=== PATIENT | female | born 1990 | race Caucasian/White ===

== ENCOUNTER 2017-05-28 11:29 | Emergency (ER) | payer MEDICAID ==
[~2017-05-28] VITALS: Ht 154.9 cm; Wt 72.6 kg
[2017-05-28 11:29] VITALS: BP 128/81
[2017-05-28] MEDS ORDERED: PENI500T PO (11:49)
[2017-05-28] MEDS ORDERED: OXYC5CAP PO (11:49)
[2017-05-28] MEDS ORDERED: oxyCODONE/APAP 5/325 1 TAB TABLET PO ONE (12:00)
[2017-05-28] MEDS ORDERED: PENICILLIN V K 250 MG TABLET. PO ONE (12:00)
--- NOTE | 2017-05-28 12:14 | ED.ADGEN ---
Past History Past Medical History: No Pertinent History Past Surgical History: No Surgical History Alcohol Use: None Drug Use: None Adult General HPI HPI Patient is a 27-year-old woman, who is 34 weeks , with no other significant past no history, who presents to the emergency department with complaint of dental pain. Patient states she's been experiencing intermittent pain in the right lower jaw over the past several weeks, worse over the past several days. She has appointment to see a dentist on of the coming week. She denies any fevers or chills, any nausea or vomiting, any weakness, numbness, tingling, chest pain, shortness of breath and difficulty with swallowing or breathing. Patient states that she has been using Tylenol without relief, did speak to her doctor's office today and was told to come to the ED for evaluation for pain medication and potential antibiotic use. Patient does have all of her wisdom teeth. Patient states the pain is now radiating into her left ear. No difficulty with hearing, no headache. Review of Systems Review of Systems Constitutional: Denies fever or chills [] Eyes: Denies change in visual acuity, redness, or eye pain [] HENT: Denies nasal congestion or sore throat []pain and lower jaw, left side, radiating into the ear. Respiratory: Denies cough or shortness of breath [] Cardiovascular: No additional information not addressed in HPI [] GI: Denies abdominal pain, nausea, vomiting, bloody stools or diarrhea [] : Denies dysuria or hematuria [] Musculoskeletal: Denies back pain or joint pain [] Integument: Denies rash or skin lesions [] Neurologic: Denies headache, focal weakness or sensory changes [] Endocrine: Denies polyuria or polydipsia [] Current Medications Current Medications Current Medications Medications (Trade) Dose Ordered Sig/Rachel Start Time Stop Time Status Last Admin Dose Admin Oxycodone/ Acetaminophen (Percocet 5/325) 1 tab 1X ONCE 05/28/17 12:00 05/28/17 12:02 DC 05/28/17 12:00 1 TAB Penicillin V Potassium (Veetid) 500 mg 1X ONCE 05/28/17 12:00 05/28/17 12:02 DC 05/28/17 12:00 500 MG Allergies Allergies Allergies Coded Allergies Type Severity Reaction Last Updated Verified No Known Drug Allergies 05/28/17 No Physical Exam Physical Exam Constitutional: Well developed, well nourished, no acute distress, non-toxic appearance. [] HENT: Normocephalic, atraumatic, bilateral external ears normal, oropharynx moist, no oral exudates, nose normal. Patient with tenderness to palpation of the posterior aspect of the left lower jaw, no abscess formation or induration identified, no dental caries. Patient identifies this area with palpation a source for pain, which she describes as lancinating and traveling up into the ear. []TMs are clear bilaterally. Eyes: PERRLA, EOMI, conjunctiva normal, no discharge. [] Neck: Normal range of motion, no tenderness, supple, no stridor. [] Cardiovascular:Heart rate regular rhythm, no murmur, S1, S2, no rubs or gallops. [] Lungs & Thorax: Bilateral breath sounds clear to auscultation, no wheezing, rhonchi, rales. No chest or crepitus or tenderness. [] Abdomen: Bowel sounds normal, soft, gravid abdomen, no tenderness, no masses, no pulsatile masses. [] Skin: Warm, dry, no erythema, no rash. [] Back: No tenderness, no CVA tenderness. [] Extremities: No tenderness, no cyanosis, no clubbing, ROM intact, no edema. Negative Homans sign.[] Neurologic: Alert and oriented X 3, normal motor function, normal sensory function, no focal deficits noted. [] Psychologic: Affect normal, judgement normal, mood normal. [] heart tones in the 150s. Active motion. Current Patient Data Vital Signs Vital Signs Date Time Temp Pulse Resp B/P (MAP) Pulse Ox O2 Delivery O2 Flow Rate FiO2 05/28/17 12:00 18 98 Room Air 05/28/17 11:29 98.7 116 EKG EKG Not indicated.[] Radiology/Procedures Radiology/Procedures Not indicated.[] Course & Med Decision Making Course & Med Decision Making Pertinent Labs and Imaging studies reviewed. (See chart for details) Patient appears uncomfortable, has been using Tylenol home without relief. Last dose was several hours ago. She has been using as directed. Is also taking vitamins. Discussed with patient there is no evidence of overt infection, however based on her renal compromise state, and the time will take her to follow-up with her dentist, that prophylactic administration of antibiotics, along with pain medication be appropriate. Did advise patient that she is unable to take anti-inflammatory medications currently due to her , of which patient was aware. She has discussed short course of opiates and continuing Tylenol with her OB, is comfortable with this plan. Patient was driven to the emergency department by a friend. Patient was given first dose of penicillin VK in the ED without issue, along with Percocet 5 mg, given a prescription for oxycodone 5 mg a total 12, and a ten-day course of Penicillin VK, to be used as directed by her dentist. We discussed concerning symptoms that prompt return to the emergency department, importance of follow-up , medication precautions and instructions, patient voiced understanding and agreement, discharged home in stable condition with plan as above. Final Impression Final Impression [] Problems: Dragon Disclaimer Dragon Disclaimer This electronic medical record was generated, in whole or in part, using a voice recognition dictation system. Departure: Impression: Primary Impression: Pain, dental Disposition: 01 HOME, SELF-CARE Condition: IMPROVED Scripts Oxycodone Hcl (OXYCODONE HCL) 5 Mg Capsule 1 CAP PO PRN QID Y for PAIN, #12 CAP Prov: WENDY SOLORIO DO 05/28/17 Penicillin V Potassium (PENICILLIN V POTASSIUM) 500 Mg Tablet 1 TAB PO QID, #39 TAB Prov: WENDY SOLORIO DO 05/28/17 WENDY SOLORIO DO May 28, 2017 12:14
[2017-05-28] MEDS ORDERED: OXYC5TAB PO (12:37)
== END 2017-05-28 12:01 | disposition home or self-care (01) ==
LOC: ER 11:29
DX: O99.613 Diseases of the digestive system complicating pregnancy, third trimester (principal); K08.89 Other specified disorders of teeth and supporting structures; Z3A.34 34 weeks gestation of pregnancy
CPT/HCPCS: 99283

== ENCOUNTER 2017-10-14 12:20 | Emergency (ER) | payer MEDICAID, OTHER ==
[~2017-10-14 12:20] MED LIST: OXYC5CAP PO; OXYC5TAB95 PO; PENI500T PO
[2017-10-14 12:25] VITALS: BP 118/60
[2017-10-14] MEDS ORDERED: ACET325T9 PO (13:30)
[2017-10-14] MEDS ORDERED: ACETAMINOPHEN 500 MG TABLET PO ONE (13:30)
--- NOTE | 2017-10-14 13:31 | PHYS DOC ---
Past History Past Medical History: No Pertinent History Past Surgical History: No Surgical History Smoking: Non-smoker Alcohol Use: None Drug Use: None Adult General Chief Complaint Chief Complaint: BACK PAIN - NO INJURY HPI HPI 27-year-old female patient complaining of left-sided lower back pain for the last 3 days as a constant pain that getting worse with movement. Patient denies radiation of pain, focal neuro deficit, urinary and bowel incontinence, vaginal bleeding or discharge. Patient states she had nausea this morning. Patient states she applied heat pad and took ibuprofen without improvement of her pain. Patient states she had a normal vaginal delivery 2 months ago and her LMP was August 27, 2017 and denies using any contraception. Review of Systems Review of Systems Constitutional: Denies fever or chills [] Eyes: Denies change in visual acuity, redness, or eye pain [] HENT: Denies nasal congestion or sore throat [] Respiratory: Denies cough or shortness of breath [] Cardiovascular: No additional information not addressed in HPI [] GI: Denies abdominal pain, nausea, vomiting, bloody stools or diarrhea [] : Denies dysuria or hematuria [] Musculoskeletal: Reports back pain, denies joint pain [] Integument: Denies rash or skin lesions [] Neurologic: Denies headache, focal weakness or sensory changes [] Endocrine: Denies polyuria or polydipsia [] All other systems were reviewed and found to be within normal limits, except as documented in this note. Current Medications Current Medications Current Medications Medications (Trade) Dose Ordered Sig/[facility] Start Time Stop Time Status Last Admin Dose Admin Acetaminophen (Tylenol) 1,000 mg 1X ONCE 10/14/17 13:30 10/14/17 13:31 10/14/17 13:18 1,000 MG Allergies Allergies Allergies Coded Allergies Type Severity Reaction Last Updated Verified No Known Drug Allergies 05/28/17 No Physical Exam Physical Exam Constitutional: Well developed, well nourished, mild distress, non-toxic appearance. [] HENT: Normocephalic, atraumatic, bilateral external ears normal, oropharynx moist, no oral exudates, nose normal. [] Eyes: PERRLA, EOMI, conjunctiva normal, no discharge. [] Neck: Normal range of motion, no tenderness, supple, no stridor. [] Cardiovascular:Heart rate regular rhythm, no murmur [] Lungs & Thorax: Bilateral breath sounds clear to auscultation [] Abdomen: Bowel sounds normal, soft, no tenderness, no masses, no pulsatile masses. [] Skin: Warm, dry, no erythema, no rash. [] Back: No tenderness, no CVA tenderness. [] Extremities: No tenderness, no cyanosis, no clubbing, ROM intact, no edema. [] Neurologic: Alert and oriented X 3, normal motor function, normal sensory function, no focal deficits noted. [] Psychologic: Affect normal, judgement normal, mood normal. [] Current Patient Data Vital Signs Vital Signs Date Time Temp Pulse Resp B/P (MAP) Pulse Ox O2 Delivery O2 Flow Rate FiO2 10/14/17 12:25 98.6 86 18 96 Room Air Lab Results Laboratory Tests Test 10/14/17 13:06 POC Urine HCG, Qualitative hcg positive (Negative) EKG EKG [] Radiology/Procedures Radiology/Procedures [] Course & Med Decision Making Course & Med Decision Making Pertinent Labs studies reviewed. (See chart for details) Evaluation of patient in ER showed 27-year-old female patient with low back pain for 3 days. Patient had unremarkable physical exam except for limited range of motion of lumbar spine because of pain. Patient had positive test. UA showed positive leukocytes. Plan discharge patient home with diagnosis of and lumbosacral strain and UTI in . Patient instructed to not use ibuprofen or heat pad. Dragon Disclaimer Dragon Disclaimer This electronic medical record was generated, in whole or in part, using a voice recognition dictation system. Departure Departure: Impression: Primary Impression: Lumbosacral strain Additional Impressions: Positive urine test Urinary tract infection Disposition: HOME, SELF-CARE (at 1320) Condition: IMPROVED Referrals: JASPREET BIRMINGHAM (PCP) Patient Instructions: ABCs of , Back Pain in , Lumbosacral Strain Additional Instructions: Apply ice on your back Not take ibuprofen or aspirin for pain Follow-up with your physician in 3 or 5 days Return to ER if not getting better Scripts Cephalexin (KEFLEX) 500 Mg Capsule 1 CAP PO TID, #21 CAP Prov: IVY JONES MD 10/14/17 Acetaminophen (TYLENOL) 325 Mg Tablet 975 MG PO QID Y for PAIN, #100 TAB Prov: IVY JONES MD 10/14/17 Problem Qualifiers IVY JONES MD Oct 14, 2017 13:31
[2017-10-14] MEDS ORDERED: CEPH-264 PO (13:47)
[2017-10-14 13:51] LABS: BILIRUBIN,URINE NEG (NEG); CLARITY,URINE CLOUDY; COLOR,URINE YELLOW; UROBILINOGEN,URINE 0.2 mg/dL (0.2 mg/dL)
[2017-10-14 13:52] LABS: BACTERIA,URINE FEW /HPF (0-FEW); GLUCOSE,URINE NEG (NEG); NITRITE,URINE NEG (NEG); RBC,URINE RARE /HPF (0-2); SQUAMOUS EPITHELIAL CELL,UR MANY /LPF
== END 2017-10-14 13:50 | disposition home or self-care (01) ==
LOC: ER 12:20
DX: S39.012A Strain of muscle, fascia and tendon of lower back, initial encounter (principal); N39.0 Urinary tract infection, site not specified; Z33.1 Pregnant state, incidental; X58.XXXA Exposure to other specified factors, initial encounter; Y93.89 Activity, other specified; Y99.8 Other external cause status; Y92.89 Other specified places as the place of occurrence of the external cause
CPT/HCPCS: 81001; 81025; 87086; 99284

== ENCOUNTER 2018-04-29 09:48 | Emergency (ER) | payer OTHER ==
[~2018-04-29] VITALS: Ht 152.4 cm; Wt 72.6 kg
[~2018-04-29 09:48] MED LIST changes: +ACET325T9 PO; +CEPH-264 PO
--- NOTE | 2018-04-29 10:14 | PHYS DOC ---
Past History Past Medical History: No Pertinent History Past Surgical History: No Surgical History Smoking: Non-smoker Alcohol Use: None Drug Use: None Adult General Chief Complaint Chief Complaint: BACK PAIN - NO INJURY HPI HPI Patient is a 28-year-old female at 36 weeks who presents to the emergency department complaining of low back pain and vaginal discharge x 2 days. She describes her back pain as achy and rates the pain as 6/10 in severity. She states that her pain is worse when she is walking and improves when she sits down. Patient states that her vaginal discharge is white in color and thick in consistency and she complains of burning upon urination. Denies sensation to push. Denies water breakage. Denies vaginal bleeding. Reports movement. Review of Systems Review of Systems Constitutional: Denies fever or chills [] Eyes: Denies change in visual acuity, redness, or eye pain [] HENT: Denies nasal congestion or sore throat [] Respiratory: Denies cough or shortness of breath [] Cardiovascular: Denies chest pain and palpitations[] GI: Endorses nausea . Denies abdominal pain, vomiting, or diarrhea [] : Endorses dysuria; denies hematuria [] Musculoskeletal: Endorses low back pain [] Neurologic: Denies headache, focal weakness or sensory changes [] Complete systems were reviewed and found to be within normal limits, except as documented in this note. Allergies Allergies Allergies Coded Allergies Type Severity Reaction Last Updated Verified No Known Drug Allergies 05/28/17 No Physical Exam Physical Exam Constitutional: Well developed, well nourished, no acute distress, non-toxic appearance. [] HENT: Normocephalic, atraumatic, bilateral external ears normal, oropharynx moist, no oral exudates, nose normal. [] Eyes: PERRL, EOMI. [] Neck: Normal range of motion, no tenderness, supple, no stridor. [] Cardiovascular: Heart rate regular rhythm, no murmur [] Lungs & Thorax: Bilateral breath sounds clear to auscultation [] Abdomen: Soft, no tenderness, gravid uterus Skin: Warm, dry, no erythema, no rash. [] Back: Bilateral lumbar paraspinal muscle tenderness, no CVA tenderness. [] MEDICAL SCHEDULER: External genitalia without rash, Pelvic exam with white thick discharge noted in vaginal vault, Os nontender, Gravid uterus; chicken catcher- Jennyfer RN Extremities: No tenderness, ROM intact, no edema. [] Neurologic: Alert and oriented X 3, normal motor function, normal sensory function, no focal deficits noted. [] Current Patient Data Vital Signs Vital Signs Date Time Temp Pulse Resp B/P (MAP) Pulse Ox O2 Delivery O2 Flow Rate FiO2 04/29/18 09:56 98.2 88 18 97 Room Air EKG EKG [] Radiology/Procedures Radiology/Procedures [] Course & Med Decision Making Course & Med Decision Making Pertinent Labs and Imaging studies reviewed. (See chart for details) 36 week female presents with report of low back pain and vaginal discharge. Patient with no midline bony tenderness and no history of trauma. UA with signs of Trichomonas. Pelvic exam performed. Cornea/gonorrhea cultures pending. Empiric antibiotics initiated. Wet mount with signs of Bacterial vaginosis. Flagyl provided. heart tones 170bpm. Patient stable for discharge with outpatient follow-up with OB. Discussed findings and plan with patient, who acknowledges understanding and agreement. Dragon Disclaimer Dragon Disclaimer This electronic medical record was generated, in whole or in part, using a voice recognition dictation system. Departure Departure: Impression: Primary Impression: Back pain during in third trimester Additional Impressions: Trichomoniasis Bacterial vaginosis Disposition: 01 HOME, SELF-CARE Condition: STABLE Referrals: JASPREET BIRMINGHAM (PCP) Patient Instructions: Back Pain, Adult, [id number], Bacterial Vaginosis, Easy -to-Read, - Third Trimester, [id number], Trichomoniasis Scripts Metronidazole (FLAGYL) 500 Mg Tablet 1 TAB PO BID for 7 Days, #14 TAB Prov: ALFREDO MERRILL DO 04/29/18 Problem Qualifiers ALFREDO MERRILL DO Apr 29, 2018 10:14
[2018-04-29] MEDS ORDERED: ACETAMINOPHEN 500 MG TABLET PO ONE (10:15)
[2018-04-29 10:41] LABS: BILIRUBIN,URINE NEG (NEG); CLARITY,URINE CLEAR; COLOR,URINE YELLOW; GLUCOSE,URINE NEG (NEG)
[2018-04-29 10:42] LABS: BACTERIA,URINE FEW /HPF (0-FEW); NITRITE,URINE NEG (NEG); SQUAMOUS EPITHELIAL CELL,UR FEW /LPF; TRICHOMONAS,URINE PRESENT; UROBILINOGEN,URINE 0.2 mg/dL (0.2 mg/dL)
[2018-04-29] MEDS ORDERED: AZITHROMYCIN 250 MG TABLET. PO ONE (10:45)
[2018-04-29] MEDS ORDERED: cefTRIAXone IM 250 MG VIAL IM ONE (10:45)
[2018-04-29] MEDS ORDERED: METR500T PO (10:55)
[2018-04-29 11:30] VITALS: BP 108/62
[2018-04-29] MEDS ORDERED: metroNIDAZOLE 500 MG TABLET PO ONE (11:45)
[2018-05-01 14:15] LABS: CHLAMYDIA PROBE Negative (Negative)
== END 2018-04-29 11:40 | disposition home or self-care (01) ==
LOC: ER 09:48
DX: O26.893 Other specified pregnancy related conditions, third trimester (principal); M54.5 Low back pain; O98.313 Other infections with a predominantly sexual mode of transmission complicating pregnancy, third trimester; A59.01 Trichomonal vulvovaginitis; Z3A.36 36 weeks gestation of pregnancy
CPT/HCPCS: 36415; 81001; 87491; 87591; 96372; 99284; J0456; J0696; Q0111